=== PATIENT | female | born 1970 | race Caucasian/White ===

== ENCOUNTER 2024-10-01 15:58 | Emergency (ER) | payer OTHER ==
[~2024-10-01] VITALS: Ht 157.5 cm; Wt 89.8 kg
[2024-10-01 16:17] VITALS: TEMP 98.2
[2024-10-01] MEDS ORDERED: SULF1TAB49 PO (20:08)
--- NOTE | 2024-10-01 20:08 | Physician Documentation ---
History of Present Illness ~ Chief Complaint: Wound Stated Complaint: CELLULITIS Time Seen by MD: 19:53 Mode of Arrival: POV HPI Patient presents to the emergency room with a wound to her right lateral ankle. She says it started this week she was walking in hurt her ankle when she placed some ice on it to help with the swelling. She feels that she may of over ice to herself because when she scratches she may have over scratched herself causing the infection. No fevers. Wound has now began to fester Tetanus within 5 years?: Yes Medication Reconciliation Allergies: Coded Allergies: No Known Allergies (Unverified , 10/01/24) Review of Systems ROS All review of systems negative except as per HPI Physical Exam Vital Signs: Temperature: 98.2, Source: Temporal, Heart Rate: 54, Respiratory Rate: 16, BP: 147/64, Pulse Oximetry: 99, Weight: 89.800 Physical Exam General: Patient is awake, alert, oriented x4 in no acute distress and well appearing.~ Head: Normocephalic and atraumatic. Eyes: Conjunctival normal. EOMI. PERRL. ENT: Mucous membranes moist. Neck: Supple, trachea is midline. Chest: Clear to auscultation bilaterally without rales, rhonchi, or wheezes. There is no accessory muscle use or retractions. Cardiac: RRR without murmurs, gallops, or rubs. Extremities: Normal strength. Normal range of motion. 5 x 5 cm area of cellulitis to her right lateral ankle with some bullae noted Progress Results/Orders Results/Orders Vital Signs 10/01/24 10/01/24 10/01/24 16:17 18:27 18:34 Temp 98.2 Pulse 65 54 Resp 15 16 16 B/P (MAP) 148/79 147/64 (91) Pulse Ox 97 99 Medical Decision Making Findings Patient presented to the emergency room with skin abnormality noted to her right leg. Differentials include but are not limited to contact dermatitis, cellulitis, abscess, herpes. Physical exam consistent with bullous impetigo and we will treat her accordingly Departure Disposition: HOME / SELF CARE / HOMELESS Impression: Primary Impression: Bullous impetigo Condition: Stable Discharge Instructions: Cellulitis, Adult Referrals: NO PRIMARY CARE PROVIDER (PCP) Prescriptions Sulfamethoxazole/Trimethoprim (Bactrim Ds Tablet) 800 Mg-160 Mg Tablet 1 TAB PO Q12H for 10 Days, #20 TAB Prov: KORY DUFFY MD 10/01/24 Education Educated: Patient Educated regarding: diagnosis, treatment, need for follow up Signature Scribe Signature: No scribe Attestation: The note accurately reflects work and decisions made by me.Kory Duffy MD 10/01/24 20:08 KORY DUFFY MD Oct 01, 2024 20:08
[2024-10-01] MEDS: sulfamethoxazole/trimethoprim DS (800/160mg) tablet PO ONE (20:28)
[2024-10-01] MEDS: ondansetron 4mg rapidly disintigrating tab PO ONE (20:28)
[2024-10-01] MEDS: bacitracin 15gm ointment TP ONE (20:29)
[2024-10-01] MEDS: TETanus/Pertussis (Acell)/Diphther VAC/PF (Tdap-Adult) 0.5ml syringe IMVAC ONE (20:30)
[2024-10-01 20:36] VITALS: BP 136/76; PULSE 61; RESP 16; O2SAT 100
== END 2024-10-01 20:39 | disposition home or self-care (01) ==
LOC: ER 15:59
DX: L01.03 Bullous impetigo (principal)
CPT/HCPCS: 90471; 90715; 99284; A6446